=== PATIENT | male | born 1960 | race Caucasian/White ===

== ENCOUNTER → 2019-11-15 | Outpatient (CLI) | payer BC ==
--- NOTE | 2019-11-15 09:03 | CT ---
EXAMINATION TYPE: CT urogram wo/w con DATE OF EXAM: 11/15/2019 COMPARISON: None HISTORY: Hematuria, frequent urination CT DLP: 2667.7 mGycm Automated exposure control for dose reduction was used. CONTRAST: Performed without and with IV Contrast, patient injected with 100 mL of Isovue 300. TECHNIQUE: Axial images 5 mm thick sections. Reconstructed images in the coronal plane. Three-D recon structed images of the renal collecting system was performed on a separate computer by the technologi st FINDINGS: Limited CT sections are obtained the lung bases. There is a calcified nodule in the posterior medial right lung base measuring 0.6 cm. Series 6 image 3. Some pectus excavatum may be present. Few tiny calcifications may be within the liver. Multiple calcified granuloma are within the spleen. Cholelithiasis is present. Pancreas is unremarkable. Adrenal glands are normal. Kidneys are normal wi thout masses cysts or hydronephrosis. Loops of bowel without oral contrast appear unremarkable. Attention is paid to the kidneys pre and postcontrast. No masses cysts or hydronephrosis are evident. No hydroureter is evident. No filling defects are evident. Urinary bladder: A posterior inferior calcification may be present within the urinary bladder measuri ng 1.6 cm 940 Hounsfield units. A precontrast imaging this area is not evident. Small amount of contr ast is entering the urinary bladder and urinary bladder contrast could be considered as well. Prostate is markedly enlarged and has some inferior impression on urinary bladder. IMPRESSION: 1. URINARY BLADDER CALCIFICATION LIKELY PRESENT. 2. INFERIOR IMPRESSION BY THE ENLARGED PROSTATE. 3. CTA UROGRAM APPEARS UNREMARKABLE.
== END | disposition home or self-care (01) ==
LOC: RADCTMAIN 06:56
PROVIDERS: ATTEND Urology
DX: N40.1 Benign prostatic hyperplasia with lower urinary tract symptoms (principal); R31.9 Hematuria, unspecified; R82.89 Other abnormal findings on cytological and histological examination of urine
CPT/HCPCS: 82565; 84520; 74178; 36415; 74400; Q9967

== ENCOUNTER → 2019-11-24 | Outpatient (CLI) | payer BC ==
[2019-11-24 09:21] LABS: Basophils % (A) 0 %; Eosinophils # (A) 0.1 k/uL (0-0.7); Eosinophils % (A) 3 %; HCT 38.8 % (39.0-53.0); HGB 13.6 gm/dL (13.0-17.5); Lymphocytes # (A) 1.5 k/uL (1.0-4.8); Lymphocytes % (A) 36 %; MCH 31.2 pg (25.0-35.0); MCHC 35.1 g/dL (31.0-37.0); MCV 88.9 fL (80.0-100.0); Mean Platelet Volume 7.5; Monocytes # (A) 0.2 k/uL (0-1.0); Monocytes % (A) 6 %; Neutrophils # (A) 2.3 k/uL (1.3-7.7); Neutrophils % (A) 54 %; Platelet Count 193 k/uL (150-450); RBC 4.36 m/uL (4.30-5.90); RDW 12.5 % (11.5-15.5); WBC 4.3 k/uL (3.8-10.6)
[2019-11-24 09:25] LABS: African American GFR (CKD) >90 (>60 ml/min/1.73 sqM); Anion Gap 9 mmol/L; Blood Urea Nitrogen 20 mg/dL (9-20); Calcium 10.3 mg/dL (8.4-10.2); Carbon Dioxide 26 mmol/L (22-30); Chloride 104 mmol/L (98-107); Glucose 243 mg/dL (74-99); Non-African American GFR(CKD) 80 (>60 ml/min/1.73 sqM); Potassium 4.8 mmol/L (3.5-5.1); Sodium 139 mmol/L (137-145)
== END | disposition home or self-care (01) ==
LOC: LABPAT 08:12
PROVIDERS: ATTEND Urology
DX: Z20.828 Contact with and (suspected) exposure to other viral communicable diseases (principal); N21.0 Calculus in bladder
CPT/HCPCS: 36415; 80048; 85025

== ENCOUNTER 2019-12-01 08:21 | Day surgery (SDC) | payer BC ==
[2019-11-28 16:14] VITALS: BMI 27.8
--- NOTE | 2019-11-30 11:01 | P.GSHP ---
History of Present Illness H&P Date: 11/24/19 Chief Complaint: Hematuria the patient is a 59-year-old white male with microhematuria. Urine cytology was suspicious. A CT urogram showed normal upper tracts, but revealed a 1.6 cm bladder calculus. He now comes for cystolithotripsy. - Constitutional Constitutional: Denies chills, Denies fever - Genitourinary (Male) Genitourinary: Reports urinary frequency Past Medical History - Past Family History Mother Family Medical History: No Reported History Medications and Allergies Home Medications Medication Instructions Recorded Confirmed Type Cholecalciferol [Vitamin D3 (25 1,000 unit PO DAILY 11/28/19 11/28/19 History Mcg = 1000 Iu)] Fenofibrate Nanocrystallized 145 mg PO DAILY 11/28/19 11/28/19 History [Fenofibrate] Glimepiride [Amaryl] 1 mg PO BID 11/28/19 11/28/19 History Losartan Potassium [Cozaar] 50 mg PO DAILY 11/28/19 11/28/19 History Multivitamins, Thera [Multivitamin 1 tab PO DAILY 11/28/19 11/28/19 History (formulary)] [place]-3 Fatty Acids/Fish Oil [Fish 1 each PO DAILY 11/28/19 11/28/19 History Oil 1,000 mg Softgel] Omeprazole [PriLOSEC] 20 mg PO AC-BRKFST 11/28/19 11/28/19 History Tamsulosin [Flomax] 0.4 mg PO DAILY 11/28/19 11/28/19 History metFORMIN HCL [Glucophage] 1,000 mg PO BID 11/28/19 11/28/19 History Allergies Allergy/AdvReac Type Severity Reaction Status Date / Time No Known Allergies Allergy Verified 11/28/19 15:58 Surgical - Exam - General well developed, well nourished, no distress - Neck no masses, trachea midline - Respiratory normal respiratory effort, clear to auscultation - Cardiovascular Rhythm: regular Abnormal Heart Sounds: no systolic murmur, no diastolic murmur, no rub, no S3 Gallop, no S4 Gallop, no click, no other - Abdomen Abdomen: soft, non tender, no guarding, no rigid, no rebound - Genitourinary normal penis with no external lesions, testicles non-tender - Rectum Rectum: normal sphincter tone, no masses, other (prostate moderately enlarged with benign right apical nodule) - Psychiatric oriented to time Results - Imaging CT scan - abdomen: report reviewed, image reviewed Assessment and Plan (1) Calculus in bladder Status: Acute Code(s): N21.0 - CALCULUS IN BLADDER SNOMED Code(s): 72726056 Plan: Cystoscopy with cystolithotripsy. The procedure has been reviewed in detail with the patient. He is aware of potential risks, which include anesthesia, bleeding, infection, bladder perforation, and postoperative urinary retention.
[~2019-12-01 08:21] MED LIST: DEXAMETHASONE SOD PHOSPHATE 10 MG/ML 1 ML VIAL IV ONE; HYDROmorphone 0.5 MG/0.5 ML SYRINGE IVP PRN; LACTATED RINGERS 1,000 ML IV SCH; ONDANSETRON 4 MG/2 ML VIAL IVP ONE
[2019-12-01 08:52] VITALS: TEMP 97.7
[2019-12-01 08:57] LABS: Glucose,Whole Blood 158 mg/dL (75-99)
[2019-12-01] MEDS ORDERED: KETOROLAC 15 MG/ML 1 ML VIAL ONE (10:00)
[2019-12-01] MEDS ORDERED: LIDOCAINE 1% INJ 10MG/ML (20 ML MDV) ONE (10:00)
[2019-12-01] MEDS ORDERED: fentaNYL (PF) 50 MCG/ML 2 ML AMP ONE (10:00)
[2019-12-01] MEDS ORDERED: PROPOFOL 10 MG/ML 20 ML VIAL IV ONE (10:00)
[2019-12-01] MEDS ORDERED: SUCCINYLCHOLINE CHLORIDE 100 MG/5 ML SYR IV ONE (10:00)
[2019-12-01] MEDS ORDERED: MIDAZOLAM 2 MG/2 ML VIAL ONE (10:00)
--- NOTE | 2019-12-01 11:00 | P.OP ---
Date of Procedure: 12/01/19 Preoperative Diagnosis: Bladder Calculus Postoperative Diagnosis: Same Procedure(s) Performed: Cystoscopy with cystolithotripsy Anesthesia: JUAN R Surgeon: Sunny Garcia Estimated Blood Loss (ml): 10 IV fluids (ml): 500 Pathology: other (Bladder calculus fragments) Condition: stable Disposition: PACU Indications for Procedure: the patient is a 59-year-old white male with microhematuria. Urine cytology was suspicious. A CT urogram showed normal upper tracts, but revealed a 1.6 cm bladder calculus. He now comes for cystolithotripsy. Operative Findings: Bladder calculus, fragmented completely. Trilobar BPH. Description of Procedure: The patient was taken to the operating room and placed in the dorsal lithotomy position, with legs supported in Darek stirrups. The external genitalia was prepped and draped sterilely. The 30 lens was used to introduce the 21-[place] Dukes cystoscopic sheath through the urethra and into the bladder under direct vision. The urethra appeared normal. The prostate showed evidence of trilobar BPH which was completely obstructing. The bladder was examined in its entirety. The ureteral orifices appeared normal. A 1.6 cm bladder calculus was identified. No tumors were seen. No diverticuli were seen. Using the 1000 micron Holmium laser probe, lithotripsy was performed. Lithotripsy was continued until all calculus fragments could be removed via the cystoscope. Once this was completed, the bladder was inspected. There was no active bleeding, and no evidence of bladder perforation. An 18-Senegalese Dalal catheter was placed. The return was essentially clear. The patient tolerated the procedure well was taken to the recovery room in stable condition.
[2019-12-01 11:14] LABS: Glucose,Whole Blood 170 mg/dL (75-99)
[2019-12-01] MEDS ORDERED: LACTATED RINGERS 1,000 ML IV ONE (12:05)
[2019-12-01 12:07] VITALS: RESP 18
[2019-12-01 12:14] LABS: Glucose,Whole Blood 165 mg/dL (75-99)
[2019-12-01 12:41] VITALS: BP 117/74; PULSE 77
== END 2019-12-01 12:57 | disposition home or self-care (01) ==
LOC: OR 08:21
PROVIDERS: ATTEND Urology
DX: N21.0 Calculus in bladder (principal); R31.29 Other microscopic hematuria; R35.0 Frequency of micturition; K21.9 Gastro-esophageal reflux disease without esophagitis; I10 Essential (primary) hypertension; E11.9 Type 2 diabetes mellitus without complications; Z87.442 Personal history of urinary calculi; Z79.84 Long term (current) use of oral hypoglycemic drugs; Z79.899 Other long term (current) drug therapy; Z98.890 Other specified postprocedural states
CPT/HCPCS: 52317; 82365; J2250; J1100; J2405; J2001; J3010; J1885; J0330; J2704

== ENCOUNTER 2023-07-21 23:33 | Emergency (ER) | payer BC ==
[2023-07-21 23:59] VITALS: RESP 18; TEMP 98.3
--- NOTE | 2023-07-22 00:33 | ED ---
General Adult HPI - General Chief complaint: Recheck/Abnormal Lab/Rx Stated complaint: Nephrology Time Seen by Provider: 07/21/23 23:46 Source: EMS, RN notes reviewed Mode of arrival: EMS - History of Present Illness Initial comments: 63-year-old male transferred from [facility]. The patient reports since Thursday, has had decreased bowel movements urination with some associated diffuse abdominal pain. Seen at [facility] and this time had labs significant for a BMP showing a BUN of 60, creatinine of 3.67, with a GFR of 17.7. UA performed that showed no significant evidence of infection. CT scan performed showed moderate left hydroureteronephrosis with periureteric/perinephric fat stranding and mild right hydrouteronephrosis. Calculus within the dependent aspect of the urinary bladder suggestive of recently passed calculus. Per the MDM there there is also concern for possibility of prostatic hypertrophy or soft tissue mass that could be causing obstructive uropathy. With the decline in renal function with no prior known history of renal impairment sent here for further evaluation as his urologist practices here. Currently, he reports no abdominal pain. Does note some nausea. No chest pain or shortness of breath. No fever or chills. No other complaints at this time. - Related Data Home Medications Medication Instructions Recorded Confirmed Cholecalciferol [Vitamin D3 (25 1,000 unit PO DAILY 11/28/19 11/28/19 Mcg = 1000 Iu)] Fenofibrate Nanocrystallized 145 mg PO DAILY 11/28/19 11/28/19 [Fenofibrate] Glimepiride [Amaryl] 1 mg PO BID 11/28/19 11/28/19 Losartan Potassium [Cozaar] 50 mg PO DAILY 11/28/19 11/28/19 Multivitamins, Thera [Multivitamin 1 tab PO DAILY 11/28/19 11/28/19 (formulary)] Ruth-3 Fatty Acids/Fish Oil [Fish 1 each PO DAILY 11/28/19 11/28/19 Oil 1,000 mg Softgel] Omeprazole [PriLOSEC] 20 mg PO AC-BRKFST 11/28/19 11/28/19 Tamsulosin [Flomax] 0.4 mg PO DAILY 11/28/19 11/28/19 metFORMIN HCL [Glucophage] 1,000 mg PO BID 11/28/19 11/28/19 Allergies Allergy/AdvReac Type Severity Reaction Status Date / Time No Known Allergies Allergy Verified 07/21/23 23:58 Review of Systems ROS Statement: Those systems with pertinent positive or pertinent negative responses have been documented in the HPI. ROS Other: All systems not noted in ROS Statement are negative. General Exam General appearance: alert, in no apparent distress Eye exam: Present: normal appearance Neck exam: Present: normal inspection Respiratory exam: Present: normal lung sounds bilaterally Cardiovascular Exam: Present: regular rate GI/Abdominal exam: Present: soft, normal bowel sounds. Absent: distended, tenderness, guarding, rebound, rigid Neurological exam: Present: alert, oriented X3 Skin exam: Present: warm, dry Course Vital Signs 07/21/23 23:51 Temperature 98.3 F Pulse Rate 86 Respiratory 18 Rate Blood Pressure 133/81 O2 Sat by Pulse 94 L Oximetry Medical Decision Making - Medical Decision Making Was pt. sent in by a medical professional or institution (, PA, PILOT CONTROL OPERATOR HELPER, urgent care, hospital, or senior care...) When possible be specific @ -[facility] Did you speak to anyone other than the patient for history (EMS, parent, family, police, friend...)? What history was obtained from this source @ -No Did you review nursing and triage notes (agree or disagree)? Why? @ -I reviewed and agree with nursing and triage notes Were old charts reviewed (outside hosp., previous admission, EMS record, old EKG, old radiological studies, urgent care reports/EKG's, senior care records)? Report findings @ -Paperwork from [facility] reviewed. For further details please see HPI. Differential Diagnosis (chest pain, altered mental status, abdominal pain women, abdominal pain men, vaginal bleeding, weakness, fever, dyspnea, syncope, headache, dizziness, GI bleed, back pain, seizure, CVA, palpatations, mental health, musculoskeletal)? @ -Differential Abdominal Pain Men: Appendicitis, cholecystitis, diverticulosis, ischemic bowel, pancreatitis, hepatitis, UTI, gastroenteritis, AAA, incarcerated hernia, bowel obstruction, constipation, inflammatory bowel, hepatitis, peptic ulcer disease, splenic infarction, perforated viscus, testicular torsion, this is not meant to be an all-inclusive list EKG interpreted by me (3pts min.). @ -None X-rays interpreted by me (1pt min.). @ -None done CT interpreted by me (1pt min.). @ -None done U/S interpreted by me (1pt. min.). @ -None done What testing was considered but not performed or refused? (CT, X-rays, U/S, labs)? Why? @ -None What meds were considered but not given or refused? Why? @ -None Did you discuss the management of the patient with other professionals (professionals i.e. DrJerel, PA, PILOT CONTROL OPERATOR HELPER, lab, RT, psych nurse, social media intern, straight ruling machine operator, teacher, control officer manager, rehabilitation caseworker)? Give summary @ -Case discussed with Dr. Morel, who at this time recommends discharge with Dalal catheter in place with close outpatient follow-up. Was smoking cessation discussed for >3mins.? @ -No Was critical care preformed (if so, how long)? @ -No Were there social determinants of health that impacted care today? How? (Homelessness, low income, unemployed, alcoholism, drug addiction, transportation, low edu. Level, literacy, decrease access to med. care, assisted, rehab)? @ -No Was there de-escalation of care discussed even if they declined (Discuss DNR or withdrawal of care, Hospice)? DNR status @ -No What co-morbidities impacted this encounter? (DM, HTN, Smoking, COPD, CAD, Cancer, CVA, ARF, Chemo, Hep., AIDS, mental health diagnosis, sleep apnea, morbid obesity)? @ -None Was patient admitted / discharged? Hospital course, mention meds given and route, prescriptions, significant lab abnormalities, going to OR and other pertinent info. @ -Discharge 63-year-old male transferred from [facility] due to complaints of urinary retention finding 1100 mL in the bladder prior to Dalal insertion. Patient transferred here as his urologist works at this facility. Case discussed with urology here who advises close outpatient follow-up and discharged with a Dalal in place. Discharged home in stable condition. Provided referral to see urology. Discussed tricked return precautions with patient who verbalized agreement. Undiagnosed new problem with uncertain prognosis? @ -No Drug Therapy requiring intensive monitoring for toxicity (Heparin, Nitro, Insulin, Cardizem)? @ -No Were any procedures done? @ -No Diagnosis/symptom? @ -Urinary retention Acute, or Chronic, or Acute on Chronic? @ -Acute Uncomplicated (without systemic symptoms) or Complicated (systemic symptoms)? @ -Uncomplicated Side effects of treatment? @ -No Exacerbation, Progression, or Severe Exacerbation? @ -No Poses a threat to life or bodily function? How? (Chest pain, [place], [place], pneumonia, PE, COPD, DKA, ARF, appy, cholecystitis, CVA, Diverticulitis, Homicidal, Suicidal, threat to staff... and all critical care pts) @ -No - Lab Data Result diagrams: 07/22/23 00:39 Lab Results 07/22/23 Range/Units 00:39 WBC 7.5 (3.8-10.6) k/uL RBC 3.98 L (4.30-5.90) m/uL Hgb 12.2 L (13.0-17.5) gm/dL Hct 34.1 L (39.0-53.0) % MCV 85.7 (80.0-100.0) fL MCH 30.5 (25.0-35.0) pg MCHC 35.6 (31.0-37.0) g/dL RDW 12.5 (11.5-15.5) % Plt Count 206 (150-450) k/uL MPV 8.3 Neutrophils % 64 % Lymphocytes % 24 % Monocytes % 7 % Eosinophils % 3 % Basophils % 0 % Neutrophils # 4.8 (1.3-7.7) k/uL Lymphocytes # 1.8 (1.0-4.8) k/uL Monocytes # 0.5 (0-1.0) k/uL Eosinophils # 0.2 (0-0.7) k/uL Basophils # 0.0 (0-0.2) k/uL Disposition Clinical Impression: Urinary retention Disposition: HOME SELF-CARE Condition: Good Additional Instructions: Please return to the Emergency Department if symptoms worsen or any other concerns. Please follow-up with urology. Is patient prescribed a controlled substance at d/c from ED?: No Referrals: Cary Viera MD [Primary Care Provider] - 1-2 days Shant Morel MD [STAFF PHYSICIAN] - 1-2 days Time of Disposition: 01:00
[2023-07-22 00:52] LABS: Basophils % (A) 0 %; Eosinophils # (A) 0.2 k/uL (0-0.7); Eosinophils % (A) 3 %; HCT 34.1 % (39.0-53.0); HGB 12.2 gm/dL (13.0-17.5); Lymphocytes # (A) 1.8 k/uL (1.0-4.8); Lymphocytes % (A) 24 %; MCH 30.5 pg (25.0-35.0); MCHC 35.6 g/dL (31.0-37.0); MCV 85.7 fL (80.0-100.0); Mean Platelet Volume 8.3; Monocytes # (A) 0.5 k/uL (0-1.0); Monocytes % (A) 7 %; Neutrophils # (A) 4.8 k/uL (1.3-7.7); Neutrophils % (A) 64 %; Platelet Count 206 k/uL (150-450); RBC 3.98 m/uL (4.30-5.90); RDW 12.5 % (11.5-15.5); WBC 7.5 k/uL (3.8-10.6)
[2023-07-22 01:04] LABS: ALT 22 U/L (4-49); AST 17 U/L (17-59); African American GFR (CKD) 30 (>60 ml/min/1.73 sqM); Albumin 3.6 g/dL (3.5-5.0); Alkaline Phosphatase 59 U/L (38-126); Anion Gap 5 mmol/L; Blood Urea Nitrogen 52 mg/dL (9-20); Calcium 10.9 mg/dL (8.4-10.2); Carbon Dioxide 28 mmol/L (22-30); Chloride 101 mmol/L (98-107); Glucose 230 mg/dL (74-99); Non-African American GFR(CKD) 26 (>60 ml/min/1.73 sqM); Potassium 3.6 mmol/L (3.5-5.1); Sodium 134 mmol/L (137-145); Total Bilirubin 1.6 mg/dL (0.2-1.3); Total Protein 6.1 g/dL (6.3-8.2)
[2023-07-22 01:24] VITALS: BP 146/90; PULSE 84
== END 2023-07-22 01:31 | disposition home or self-care (01) ==
LOC: EC 23:33
DX: R33.9 Retention of urine, unspecified (principal)
CPT/HCPCS: 36415; 80053; 85025; 99284

== ENCOUNTER 2023-07-30 10:08 | Emergency (ER) | payer BC ==
[2023-07-30 10:15] VITALS: RESP 18
--- NOTE | 2023-07-30 12:30 | ED ---
General Adult HPI - General Chief complaint: Urogenital Stated complaint: Cath Issues Time Seen by Provider: 07/30/23 10:16 Source: patient, RN notes reviewed Mode of arrival: ambulatory Limitations: no limitations - History of Present Illness Initial comments: 63-year-old male presents to the emergency department for evaluation of Dalal catheter issues. Patient states that he had a Dalal catheter put in place about 1 week ago for urinary retention. He notes that today he had not had urine output for a few hours and started to develop some suprapubic discomfort. He states that he has been having hematuria. He followed with urology yesterday and states that they were not acutely concerned for his hematuria. He is supposed to have a procedure done with urology but it is not yet scheduled. He denies recent fever, chills. Denies any other associated symptoms. - Related Data Home Medications Medication Instructions Recorded Confirmed Cholecalciferol [Vitamin D3 (25 1,000 unit PO DAILY 11/28/19 11/28/19 Mcg = 1000 Iu)] Fenofibrate Nanocrystallized 145 mg PO DAILY 11/28/19 11/28/19 [Fenofibrate] Glimepiride [Amaryl] 1 mg PO BID 11/28/19 11/28/19 Losartan Potassium [Cozaar] 50 mg PO DAILY 11/28/19 11/28/19 Multivitamins, Thera [Multivitamin 1 tab PO DAILY 11/28/19 11/28/19 (formulary)] Mobile-3 Fatty Acids/Fish Oil [Fish 1 each PO DAILY 11/28/19 11/28/19 Oil 1,000 mg Softgel] Omeprazole [PriLOSEC] 20 mg PO AC-BRKFST 11/28/19 11/28/19 Tamsulosin [Flomax] 0.4 mg PO DAILY 11/28/19 11/28/19 metFORMIN HCL [Glucophage] 1,000 mg PO BID 11/28/19 11/28/19 Previous Rx's Medication Instructions Recorded Cephalexin [Keflex] 500 mg PO Q6HR #28 cap 07/30/23 Allergies Allergy/AdvReac Type Severity Reaction Status Date / Time lisinopril AdvReac Cough Verified 07/30/23 10:15 Review of Systems ROS Statement: Those systems with pertinent positive or pertinent negative responses have been documented in the HPI. ROS Other: All systems not noted in ROS Statement are negative. Past Medical History Past Medical History: Diabetes Mellitus, Hypertension Additional Past Medical History / Comment(s): bladder stone, urinary catheter, kidney stones, History of Any Multi-Drug Resistant Organisms: None Reported Additional Past Surgical History / Comment(s): bladder stone remova, hernia repair, Past Psychological History: No Psychological Hx Reported Smoking Status: Never smoker Past Alcohol Use History: None Reported Past Drug Use History: None Reported General Exam Limitations: no limitations General appearance: alert, in no apparent distress Head exam: Present: atraumatic, normocephalic, normal inspection Eye exam: Present: normal appearance, PERRL, EOMI. Absent: scleral icterus, conjunctival injection, periorbital swelling ENT exam: Present: normal exam, mucous membranes moist Neck exam: Present: normal inspection. Absent: tenderness, meningismus, lymphadenopathy Respiratory exam: Present: normal lung sounds bilaterally. Absent: respiratory distress, wheezes, rales, rhonchi, stridor Cardiovascular Exam: Present: regular rate, normal rhythm, normal heart sounds. Absent: systolic murmur, diastolic murmur, rubs, gallop, clicks GI/Abdominal exam: Present: distended (Suprapubic distention), normal bowel sounds. Absent: tenderness, guarding, rebound, rigid Neurological exam: Present: alert, oriented X3 Psychiatric exam: Present: normal affect, normal mood Skin exam: Present: warm, dry, intact, normal color, other (samm hematuria in Dalal bag). Absent: rash Course Vital Signs 07/30/23 07/30/23 10:10 13:07 Temperature 98.0 F 98.1 F Pulse Rate 108 H 90 Respiratory 18 18 Rate Blood Pressure 133/79 147/90 O2 Sat by Pulse 97 97 Oximetry Medical Decision Making - Medical Decision Making Was pt. sent in by a medical professional or institution (, PA, PAN TANK WORKER, urgent care, hospital, or fci...) When possible be specific @ -No Did you speak to anyone other than the patient for history (EMS, parent, family, police, friend...)? What history was obtained from this source @ -No Did you review nursing and triage notes (agree or disagree)? Why? @ -I reviewed and agree with nursing and triage notes Were old charts reviewed (outside hosp., previous admission, EMS record, old EKG, old radiological studies, urgent care reports/EKG's, fci records)? Report findings @ -No old charts were reviewed Differential Diagnosis (chest pain, altered mental status, abdominal pain women, abdominal pain men, vaginal bleeding, weakness, fever, dyspnea, syncope, headache, dizziness, GI bleed, back pain, seizure, CVA, palpatations, mental health, musculoskeletal)? @ -Urinary retention, hematuria, Dalal catheter occlusion, this is resolved close EKG interpreted by me (3pts min.). @ -None X-rays interpreted by me (1pt min.). @ -None done CT interpreted by me (1pt min.). @ -None done U/S interpreted by me (1pt. min.). @ -None done What testing was considered but not performed or refused? (CT, X-rays, U/S, labs)? Why? @ -None What meds were considered but not given or refused? Why? @ -None Did you discuss the management of the patient with other professionals (professionals i.e. , PA, PAN TANK WORKER, lab, RT, psych nurse, school social worker, bellows tester, teacher, staff antisubmarine officer, case maker)? Give summary @ -No Was smoking cessation discussed for >3mins.? @ -No Was critical care preformed (if so, how long)? @ -No Were there social determinants of health that impacted care today? How? (Homelessness, low income, unemployed, alcoholism, drug addiction, transportation, low edu. Level, literacy, decrease access to med. care, skilled nursing, rehab)? @ -No Was there de-escalation of care discussed even if they declined (Discuss DNR or withdrawal of care, Hospice)? DNR status @ -No What co-morbidities impacted this encounter? (DM, HTN, Smoking, COPD, CAD, Cancer, CVA, ARF, Chemo, Hep., AIDS, mental health diagnosis, sleep apnea, morbid obesity)? @ -None Was patient admitted / discharged? Hospital course, mention meds given and route, prescriptions, significant lab abnormalities, going to OR and other pertinent info. @ -Discharge. Patient presented to the emergency department for evaluation of Dalal catheter issues. Dalal catheter flush was attempted which achieved blood clots but was still clogged. Replacement was put into place and extensively irrigated the bladder. UA was obtained which shows samm hematuria, no evidence of infectious process. Discussed further workup with laboratory studies, patient declined as he had just had this performed yesterday in his urologist office. Dalal catheter is draining. He is advised to follow-up with his urologist. He is understanding and agreeable with this plan. Patient stable at time of discharge. Case discussed with Dr. Pickett. Undiagnosed new problem with uncertain prognosis? @ -No Drug Therapy requiring intensive monitoring for toxicity (Heparin, Nitro, Insulin, Cardizem)? @ -No Were any procedures done? @ -No Diagnosis/symptom? @ -Dalal catheter occlusion Acute, or Chronic, or Acute on Chronic? @ -Acute Uncomplicated (without systemic symptoms) or Complicated (systemic symptoms)? @ -Uncomplicated Side effects of treatment? @ -No Exacerbation, Progression, or Severe Exacerbation? @ -No Poses a threat to life or bodily function? How? (Chest pain, [place], [place], pneumonia, PE, COPD, DKA, ARF, appy, cholecystitis, CVA, Diverticulitis, Homicidal, Suicidal, threat to staff... and all critical care pts) @ -No - Lab Data Lab Results 07/30/23 Range/Units 12:08 Urine Color Red Urine Appearance Turbid (Clear) Urine RBC >182 H (0-5) /hpf Urine WBC 19 H (0-5) /hpf Disposition Clinical Impression: Hematuria, Dalal catheter problem Disposition: HOME SELF-CARE Condition: Stable Instructions (If sedation given, give patient instructions): Dalal Catheter Placement and Care (ED) Additional Instructions: Please follow up with your urologist. Return to the emergency department for new or worsening symptoms. Prescriptions: Cephalexin [Keflex] 500 mg PO Q6HR #28 cap Is patient prescribed a controlled substance at d/c from ED?: No Referrals: Cary Viera MD [Primary Care Provider] - 1-2 days
[2023-07-30 12:43] LABS: RBC,Urine >182 /hpf (0-5); WBC,Urine 19 /hpf (0-5)
[2023-07-30 12:44] LABS: Appearance,Urine Turbid (Clear); Color,Urine Red
[2023-07-30 13:12] VITALS: BP 147/90; PULSE 90; TEMP 98.1
== END 2023-07-30 13:07 | disposition home or self-care (01) ==
LOC: EC 10:08
DX: T83.091A Other mechanical complication of indwelling urethral catheter, initial encounter (principal); R31.9 Hematuria, unspecified; Z88.8 Allergy status to other drugs, medicaments and biological substances
CPT/HCPCS: 51702; 51798; 81001; 87086; 99284

== ENCOUNTER 2023-07-30 17:14 | Observation (INO) | payer BC ==
--- NOTE | 2023-07-30 18:06 | ED ---
Male Urogenital HPI - General Chief complaint: Urogenital Stated complaint: Cath Issues Time Seen by Provider: 07/30/23 17:34 Source: patient, RN notes reviewed Mode of arrival: ambulatory Limitations: no limitations - History of Present Illness Initial comments: 63-year-old male presenting with catheter issue. He has been following with Dr. Garcia for hematuria and prostate hypertrophy. He has a Dalal catheter placed which has been clotting due to the hematuria and becoming clogged. He was seen in the ER several hours ago where they irrigated and changed the catheter, however he reports the catheter immediately clogged after he got home. He tried to flush it himself with no success. He is having suprapubic pain he feels is due to the retention. He has an upcoming prostate biopsy in August. - Related Data Home Medications Medication Instructions Recorded Confirmed Cholecalciferol [Vitamin D3 (25 1,000 unit PO DAILY 11/28/19 11/28/19 Mcg = 1000 Iu)] Fenofibrate Nanocrystallized 145 mg PO DAILY 11/28/19 11/28/19 [Fenofibrate] Glimepiride [Amaryl] 1 mg PO BID 11/28/19 11/28/19 Losartan Potassium [Cozaar] 50 mg PO DAILY 11/28/19 11/28/19 Multivitamins, Thera [Multivitamin 1 tab PO DAILY 11/28/19 11/28/19 (formulary)] [place]-3 Fatty Acids/Fish Oil [Fish 1 each PO DAILY 11/28/19 11/28/19 Oil 1,000 mg Softgel] Omeprazole [PriLOSEC] 20 mg PO AC-BRKFST 11/28/19 11/28/19 Tamsulosin [Flomax] 0.4 mg PO DAILY 11/28/19 11/28/19 metFORMIN HCL [Glucophage] 1,000 mg PO BID 11/28/19 11/28/19 Previous Rx's Medication Instructions Recorded Cephalexin [Keflex] 500 mg PO Q6HR #28 cap 07/30/23 Allergies Allergy/AdvReac Type Severity Reaction Status Date / Time lisinopril AdvReac Cough Verified 07/30/23 10:15 Review of Systems ROS Statement: Those systems with pertinent positive or pertinent negative responses have been documented in the HPI. ROS Other: All systems not noted in ROS Statement are negative. Past Medical History Past Medical History: Diabetes Mellitus, Hypertension Additional Past Medical History / Comment(s): bladder stone, urinary catheter, kidney stones, History of Any Multi-Drug Resistant Organisms: None Reported Additional Past Surgical History / Comment(s): bladder stone remova, hernia repair, Past Psychological History: No Psychological Hx Reported Smoking Status: Never smoker Past Alcohol Use History: None Reported Past Drug Use History: None Reported General Exam Limitations: no limitations General appearance: alert, in no apparent distress Head exam: Present: atraumatic, normocephalic, normal inspection Eye exam: Present: normal appearance, PERRL, EOMI. Absent: scleral icterus, conjunctival injection, periorbital swelling Respiratory exam: Present: normal lung sounds bilaterally. Absent: respiratory distress, wheezes, rales, rhonchi, stridor Cardiovascular Exam: Present: regular rate, normal rhythm, normal heart sounds. Absent: systolic murmur, diastolic murmur, rubs, gallop, clicks GI/Abdominal exam: Present: soft, tenderness (+Suprapubic tenderness), normal bowel sounds. Absent: distended, guarding, rebound, rigid exam: Present: other (Thick, dark red blood present in catheter) Neurological exam: Present: alert, oriented X3 Psychiatric exam: Present: normal affect, normal mood Skin exam: Present: warm, dry, intact, normal color. Absent: rash Course Vital Signs 07/30/23 07/30/23 07/30/23 17:27 17:51 19:43 Temperature 97.9 F Pulse Rate 134 H 115 H 128 H Respiratory 18 16 16 Rate Blood Pressure 97/63 117/79 134/86 O2 Sat by Pulse 97 100 98 Oximetry 07/30/23 07/30/23 19:59 23:07 Temperature Pulse Rate 84 99 Respiratory 18 18 Rate Blood Pressure 111/74 121/74 O2 Sat by Pulse 96 96 Oximetry Medical Decision Making - Medical Decision Making Was pt. sent in by a medical professional or institution (, PA, COTTON INSPECTOR, urgent care, hospital, or [facility]...) When possible be specific @ -No Did you speak to anyone other than the patient for history (EMS, parent, family, police, friend...)? What history was obtained from this source @ -No Did you review nursing and triage notes (agree or disagree)? Why? @ -I reviewed and agree with nursing and triage notes Were old charts reviewed (outside hosp., previous admission, EMS record, old EKG, old radiological studies, urgent care reports/EKG's, [facility] records)? Report findings @ -No old charts were reviewed Differential Diagnosis (chest pain, altered mental status, abdominal pain women, abdominal pain men, vaginal bleeding, weakness, fever, dyspnea, syncope, headache, dizziness, GI bleed, back pain, seizure, CVA, palpatations, mental health, musculoskeletal)? @ -Bladder stone, nephrolithiasis, carcinoma, obstruction EKG interpreted by me (3pts min.). @ -None X-rays interpreted by me (1pt min.). @ -None done CT interpreted by me (1pt min.). @ -None done U/S interpreted by me (1pt. min.). @ -Ultrasound of bladder reveals complex area within bladder, possible large blood present What testing was considered but not performed or refused? (CT, X-rays, U/S, labs)? Why? @ -None What meds were considered but not given or refused? Why? @ -None Did you discuss the management of the patient with other professionals (professionals i.e. , PA, COTTON INSPECTOR, lab, RT, psych nurse, social worker clinical, hydroelectric plant electrical engineer, teacher, legal officer, rehabilitation caseworker)? Give summary @ -Case discussed with Dr. Lloyd who accepts admission at this time for catheter issue. Advised replacing current 16 catheter with 20 and irrigating the catheter. Was smoking cessation discussed for >3mins.? @ -No Was critical care preformed (if so, how long)? @ -No Were there social determinants of health that impacted care today? How? (Homelessness, low income, unemployed, alcoholism, drug addiction, transportation, low edu. Level, literacy, decrease access to med. care, halfway, rehab)? @ -No Was there de-escalation of care discussed even if they declined (Discuss DNR or withdrawal of care, Hospice)? DNR status @ -No What co-morbidities impacted this encounter? (DM, HTN, Smoking, COPD, CAD, Can cer, CVA, ARF, Chemo, Hep., AIDS, mental health diagnosis, sleep apnea, morbid obesity)? @ -None Was patient admitted / discharged? Hospital course, mention meds given and route, prescriptions, significant lab abnormalities, going to OR and other pertinent info. @ -Patient was admitted. Patient was seen and evaluated catheter issue. Patient is having gross hematuria and catheter is clogging due to blood clots. Patient follows closely with Dr. Brennan. Dalal catheter, previously size 16, was replaced with 20. Patient continued to have clotting. Lab work was unremarkable, hemoglobin is stable at 12, BUN is 24. Patient is given Dilaudid for pain. Ultrasound of bladder revealed complex area within bladder. Case discussed with Dr. Lloyd who accepts admission at this time for catheter issue. Case discussed with Dr. Lucas Undiagnosed new problem with uncertain prognosis? @ -No Drug Therapy requiring intensive monitoring for toxicity (Heparin, Nitro, Insulin, Cardizem)? @ -No Were any procedures done? @ -No Diagnosis/symptom? @ -Catheter issue Acute, or Chronic, or Acute on Chronic? @ -Acute Uncomplicated (without systemic symptoms) or Complicated (systemic symptoms)? @ -Uncomplicated Side effects of treatment? @ -No Exacerbation, Progression, or Severe Exacerbation? @ -No Poses a threat to life or bodily function? How? (Chest pain, USA, CA, pneumonia, PE, COPD, DKA, ARF, appy, cholecystitis, CVA, Diverticulitis, Homicidal, Suicidal, threat to staff... and all critical care pts) @ -Low likelihood - Lab Data Result diagrams: 07/30/23 18:44 07/30/23 18:44 Lab Results 07/30/23 07/30/23 Range/Units 18:44 18:44 WBC 11.6 H (3.8-10.6) k/uL RBC 4.01 L (4.30-5.90) m/uL Hgb 12.1 L (13.0-17.5) gm/dL Hct 35.7 L (39.0-53.0) % MCV 88.9 (80.0-100.0) fL MCH 30.2 (25.0-35.0) pg MCHC 34.0 (31.0-37.0) g/dL RDW 12.5 (11.5-15.5) % Plt Count 311 (150-450) k/uL MPV 8.2 Neutrophils % 73 % Lymphocytes % 20 % Monocytes % 4 % Eosinophils % 2 % Basophils % 1 % Neutrophils # 8.5 H (1.3-7.7) k/uL Lymphocytes # 2.3 (1.0-4.8) k/uL Monocytes # 0.5 (0-1.0) k/uL Eosinophils # 0.2 (0-0.7) k/uL Basophils # 0.1 (0-0.2) k/uL Sodium 134 L (137-145) mmol/L Potassium 4.0 (3.5-5.1) mmol/L Chloride 100 (98-107) mmol/L Carbon Dioxide 24 (22-30) mmol/L Anion Gap 10 mmol/L BUN 24 H (9-20) mg/dL Creatinine 1.21 (0.66-1.25) mg/dL Est GFR (CKD-EPI)AfAm 73 (>60 ml/min/1.73 sqM) Est GFR (CKD-EPI)NonAf 63 (>60 ml/min/1.73 sqM) Glucose 293 H (74-99) mg/dL Calcium 11.4 H (8.4-10.2) mg/dL Total Bilirubin 0.7 (0.2-1.3) mg/dL AST 21 (17-59) U/L ALT 24 (4-49) U/L Alkaline Phosphatase 58 (38-126) U/L Total Protein 6.5 (6.3-8.2) g/dL Albumin 4.0 (3.5-5.0) g/dL Disposition Clinical Impression: Dalal catheter problem Disposition: ADMITTED IP TO THIS HOSP Referrals: Cary Viera MD [Primary Care Provider] - 1-2 days Time of Disposition: 21:57
[2023-07-30 18:56] LABS: Basophils # (A) 0.1 k/uL (0-0.2); Basophils % (A) 1 %; Eosinophils # (A) 0.2 k/uL (0-0.7); Eosinophils % (A) 2 %; HCT 35.7 % (39.0-53.0); HGB 12.1 gm/dL (13.0-17.5); Lymphocytes # (A) 2.3 k/uL (1.0-4.8); Lymphocytes % (A) 20 %; MCH 30.2 pg (25.0-35.0); MCV 88.9 fL (80.0-100.0); Mean Platelet Volume 8.2; Monocytes # (A) 0.5 k/uL (0-1.0); Monocytes % (A) 4 %; Neutrophils # (A) 8.5 k/uL (1.3-7.7); Neutrophils % (A) 73 %; Platelet Count 311 k/uL (150-450); RBC 4.01 m/uL (4.30-5.90); RDW 12.5 % (11.5-15.5); WBC 11.6 k/uL (3.8-10.6)
[2023-07-30 19:18] LABS: ALT 24 U/L (4-49); AST 21 U/L (17-59); African American GFR (CKD) 73 (>60 ml/min/1.73 sqM); Alkaline Phosphatase 58 U/L (38-126); Anion Gap 10 mmol/L; Blood Urea Nitrogen 24 mg/dL (9-20); Calcium 11.4 mg/dL (8.4-10.2); Carbon Dioxide 24 mmol/L (22-30); Chloride 100 mmol/L (98-107); Glucose 293 mg/dL (74-99); Non-African American GFR(CKD) 63 (>60 ml/min/1.73 sqM); Sodium 134 mmol/L (137-145); Total Bilirubin 0.7 mg/dL (0.2-1.3); Total Protein 6.5 g/dL (6.3-8.2)
--- NOTE | 2023-07-30 19:25 | US ---
EXAMINATION TYPE: US kidneys/renal and bladder DATE OF EXAM: 07/30/2023 COMPARISON: CT abdomen and pelvis 07/21/2023 CLINICAL INDICATION: Male, 63 years old with history of hematuria; Unable to urinate, has catheter in EXAM MEASUREMENTS: Right Kidney: 11.4 x 5.8 x 5.7 cm Left Kidney: 11.8 x 5.9 x 4.6 cm Right Kidney: No hydronephrosis or masses seen Left Kidney: Lobulated no hydronephrosis seen. Bladder: Complex area seen 7.7 x 6.6 x 5.3 cm. Bilateral Jets seen: no IMPRESSION: 1. Complex area within the urinary bladder. The catheter is identified as well. Neoplasm is not exclu ded. A large blood clot could be considered. Additional workup recommended
[2023-07-30] MEDS: HYDROmorphone 1 MG/ML 1 ML SYRINGE IVP STA (21:06)
[2023-07-30] MEDS ORDERED: NALOXONE 0.4 MG/ML 1 ML VIAL IV PRN (21:54)
[2023-07-30] MEDS ORDERED: HYDROmorphone 1 MG/ML 1 ML SYRINGE IVP PRN (21:54)
[2023-07-30] MEDS: MORPHINE SULFATE 4 MG/ML SYRINGE IV PRN (23:18)
[2023-07-31 06:54] LABS: Glucose,Whole Blood 242 mg/dL (70-110)
--- NOTE | 2023-07-31 08:33 | P.GSHP ---
History of Present Illness H&P Date: 07/31/23 Chief Complaint: gross hematuria This is a 63-year-old male admitted to the hospital with gross hematuria. He is a known patient to Dr. Garcia follows up with him for BPH and urinary retention. He had a catheter placed due to difficulty voiding, Approximately a week ago. Also hx of Elevated PSA, plan to undergo biopsy next month based on the results to determine whether patient would require a TURP versus a prostatectomy. Yesterday he noticed gross hematuria with the catheter, subsequently the catheter was clogged off, he presented to the ER at that point the catheter was flushed and he was discharged home but presented back later this the afternoon with similar complaint, subsequently catheter was up sized to 20 Kinyarwanda since that time it has been draining with intermittent clots. Prior to this episode denies any previous history of gross hematuria. He does have a known history of a bladder stone based on a CT scan done at [facility] Approximately Week Ago. Per Patient Otherwise CT Showed No Other Abnormalities. He Did Have a Renal Bladder Ultrasound That Was Significant for a 8 Cm Clot within the Bladder - Constitutional Constitutional: Denies chills, Denies fever - EENT Ears, nose, mouth and throat: Denies headache, Denies sore throat - Cardiovascular Cardiovascular: Denies chest pain, Denies shortness of breath - Respiratory Respiratory: Denies cough, Denies 7 - Gastrointestinal Gastrointestinal: Denies abdominal pain, Denies nausea, Denies vomiting - Genitourinary (Female) Genitourinary: Reports hematuria - Genitourinary (Male) Genitourinary: Reports hematuria, Denies dysuria - Integumentary Integumentary: Denies pruritus, Denies rash - Neurological Neurological: Denies numbness, Denies weakness Past Medical History Past Medical History: Diabetes Mellitus, Hypertension Additional Past Medical History / Comment(s): bladder stone, urinary catheter, kidney stones, History of Any Multi-Drug Resistant Organisms: None Reported Additional Past Surgical History / Comment(s): bladder stone remova, hernia repair, Past Psychological History: No Psychological Hx Reported Smoking Status: Never smoker Past Alcohol Use History: None Reported Past Drug Use History: None Reported Medications and Allergies Home Medications Medication Instructions Recorded Confirmed Type Cholecalciferol [Vitamin D3 (25 1,000 unit PO DAILY 11/28/19 07/31/23 History Mcg = 1000 Iu)] Fenofibrate Nanocrystallized 145 mg PO DAILY 11/28/19 07/31/23 History [Fenofibrate] [place]-3 Fatty Acids/Fish Oil [Fish 1 cap PO DAILY 11/28/19 07/31/23 History Oil 1,000 mg Softgel] Omeprazole [PriLOSEC] 20 mg PO AC-BRKFST 11/28/19 07/31/23 History Tamsulosin [Flomax] 0.4 mg PO DAILY 11/28/19 07/31/23 History metFORMIN HCL [Glucophage] 1,000 mg PO BID 11/28/19 07/31/23 History Cephalexin [Keflex] 500 mg PO Q6HR #28 cap 07/30/23 07/31/23 Rx Glimepiride [Amaryl] 4 mg PO AC-BID 07/31/23 07/31/23 History Losartan/Hydrochlorothiazide 1 tab PO DAILY 07/31/23 07/31/23 History [Hyzaar 100-12.5 Tablet] Mv-Min/Folic/K1/Lycopen/Lutein 1 tab PO DAILY 07/31/23 07/31/23 History [Centrum Silver Men Tablet] Allergies Allergy/AdvReac Type Severity Reaction Status Date / Time lisinopril AdvReac Cough Verified 07/31/23 07:41 Surgical - Exam Vital Signs Temp Pulse Resp BP Pulse Ox 97.9 F 134 H 18 97/63 97 07/30/23 17:27 07/30/23 17:27 07/30/23 17:27 07/30/23 17:27 07/30/23 17:27 - General no distress, no pain - Eyes normal ocular movement, no pale - ENT normal nares, normal mucosa - Respiratory normal expansion, normal respiratory effort - Abdomen Abdomen: soft, non tender - Psychiatric oriented to time, oriented to person, oriented to place Results - Labs 07/30/23 18:44 07/30/23 18:44 Abnormal Lab Results - Last 24 Hours (Table) 07/30/23 07/30/23 07/31/23 Range/Units 18:44 18:44 06:53 WBC 11.6 H (3.8-10.6) k/uL RBC 4.01 L (4.30-5.90) m/uL Hgb 12.1 L (13.0-17.5) gm/dL Hct 35.7 L (39.0-53.0) % Neutrophils # 8.5 H (1.3-7.7) k/uL Sodium 134 L (137-145) mmol/L BUN 24 H (9-20) mg/dL Glucose 293 H (74-99) mg/dL POC Glucose (mg/dL) 242 H (70-110) mg/dL Calcium 11.4 H (8.4-10.2) mg/dL Diabetes panel 07/30/23 Range/Units 18:44 Sodium 134 L (137-145) mmol/L Potassium 4.0 (3.5-5.1) mmol/L Chloride 100 (98-107) mmol/L Carbon Dioxide 24 (22-30) mmol/L BUN 24 H (9-20) mg/dL Creatinine 1.21 (0.66-1.25) mg/dL Glucose 293 H (74-99) mg/dL Calcium 11.4 H (8.4-10.2) mg/dL AST 21 (17-59) U/L ALT 24 (4-49) U/L Alkaline Phosphatase 58 (38-126) U/L Total Protein 6.5 (6.3-8.2) g/dL Albumin 4.0 (3.5-5.0) g/dL Calcium panel 07/30/23 Range/Units 18:44 Calcium 11.4 H (8.4-10.2) mg/dL Albumin 4.0 (3.5-5.0) g/dL Pituitary panel 07/30/23 Range/Units 18:44 Sodium 134 L (137-145) mmol/L Potassium 4.0 (3.5-5.1) mmol/L Chloride 100 (98-107) mmol/L Carbon Dioxide 24 (22-30) mmol/L BUN 24 H (9-20) mg/dL Creatinine 1.21 (0.66-1.25) mg/dL Glucose 293 H (74-99) mg/dL Calcium 11.4 H (8.4-10.2) mg/dL Adrenal panel 07/30/23 Range/Units 18:44 Sodium 134 L (137-145) mmol/L Potassium 4.0 (3.5-5.1) mmol/L Chloride 100 (98-107) mmol/L Carbon Dioxide 24 (22-30) mmol/L BUN 24 H (9-20) mg/dL Creatinine 1.21 (0.66-1.25) mg/dL Glucose 293 H (74-99) mg/dL Calcium 11.4 H (8.4-10.2) mg/dL Total Bilirubin 0.7 (0.2-1.3) mg/dL AST 21 (17-59) U/L ALT 24 (4-49) U/L Alkaline Phosphatase 58 (38-126) U/L Total Protein 6.5 (6.3-8.2) g/dL Albumin 4.0 (3.5-5.0) g/dL Assessment and Plan Assessment: 63-year-old male with history of gross hematuria, and urinary retention. Evidence of large clot within the bladder. He does currently have a 20 Kinyarwanda catheter consistent with old blood. Ultrasound did show large blood clot in the bladder. I do anticipate him to have gross hematuria for few days until the clot completely resolves. If the catheter is draining without any issues we will plan on discharging home later this afternoon, but if the catheter continues to require irrigation then we will keep for 1 more day
[2023-07-31] MEDS: TAMSULOSIN 0.4 MG CAP.ER.24H PO SCH (09:20)
[2023-07-31] MEDS: hydroCHLOROthiazide 12.5 MG CAP PO SCH (09:22)
[2023-07-31] MEDS: LOSARTAN 50 MG TAB PO SCH (09:23)
[2023-07-31] MEDS: metFORMIN 500 MG TAB PO SCH (09:26)
[2023-07-31 11:56] LABS: Glucose,Whole Blood 240 mg/dL (70-110)
[2023-07-31] MEDS: CEPHALEXIN 500 MG CAP PO SCH (13:06)
[2023-07-31 17:06] LABS: Glucose,Whole Blood 252 mg/dL (70-110)
[2023-07-31] MEDS: GLIMEPIRIDE 4 MG TAB PO SCH (17:57)
[2023-07-31 20:34] LABS: Glucose,Whole Blood 303 mg/dL (70-110)
[2023-08-01 05:48] LABS: Glucose,Whole Blood 180 mg/dL (70-110)
[2023-08-01] MEDS: PANTOPRAZOLE 40 MG TABLET PO SCH (06:53)
[2023-08-01 07:22] VITALS: BP 110/73; PULSE 78; RESP 18; TEMP 97.7
[2023-08-01 11:39] LABS: Glucose,Whole Blood 294 mg/dL (70-110)
--- NOTE | 2023-08-01 22:39 | P.PCN ---
Date of Procedure: 08/01/23 Preoperative Diagnosis: Gross hematuria Postoperative Diagnosis: Same Procedure(s) Performed: Bladder irrigation Description of Procedure: Using 500 over mL of normal saline and a Yvonne syringe, the bladder was irrigated to clear approximately 50 cc of old blood clots was retrieved from the bladder. Patient tolerated procedure well
--- NOTE | 2023-08-01 22:40 | P.DS ---
Providers Date of admission: 07/30/23 22:19 Attending physician: Dariel Lloyd MD Primary care physician: Cary Viera MD Hospital Course: This is a 63-year-old male admitted to the hospital with gross hematuria, patient had urinary retention, and is being worked up as an outpatient for his urinary retention and elevated PSA. He initially presented to the hospital with clot retention, has required multiple cath exchanges, subsequently was admitted for that. Patient continues to undergo manual irrigation of the bladder, his urine did clear off on hospital day #2. He was discharged home on July 31, at time of discharge he was tolerating a diet, ambulating, pain was controlled. His catheter was irrigated without any difficulties. He will follow-up as an outpatient with Dr. Brewer Patient Condition at Discharge: Good Plan - Discharge Summary Discharge Rx Participant: Yes New Discharge Prescriptions: No Action Tamsulosin [Flomax] 0.4 mg PO DAILY Omeprazole [PriLOSEC] 20 mg PO AC-BRKFST Cholecalciferol [Vitamin D3 (25 Mcg = 1000 Iu)] 1,000 unit PO DAILY metFORMIN HCL [Glucophage] 1,000 mg PO BID [place]-3 Fatty Acids/Fish Oil [Fish Oil 1,000 mg Softgel] 1 cap PO DAILY Fenofibrate Nanocrystallized [Fenofibrate] 145 mg PO DAILY Glimepiride [Amaryl] 4 mg PO AC-BID Cephalexin [Keflex] 500 mg PO Q6HR #28 cap Mv-Min/Folic/K1/Lycopen/Lutein [Centrum Silver Men Tablet] 1 tab PO DAILY Losartan/Hydrochlorothiazide [Hyzaar 100-12.5 Tablet] 1 tab PO DAILY Discharge Medication List Cholecalciferol [Vitamin D3 (25 Mcg = 1000 Iu)] 1,000 unit PO DAILY 11/28/19 [History] Fenofibrate Nanocrystallized [Fenofibrate] 145 mg PO DAILY 11/28/19 [History] [place]-3 Fatty Acids/Fish Oil [Fish Oil 1,000 mg Softgel] 1 cap PO DAILY 11/28/19 [History] Omeprazole [PriLOSEC] 20 mg PO AC-BRKFST 11/28/19 [History] Tamsulosin [Flomax] 0.4 mg PO DAILY 11/28/19 [History] metFORMIN HCL [Glucophage] 1,000 mg PO BID 11/28/19 [History] Cephalexin [Keflex] 500 mg PO Q6HR #28 cap 07/30/23 [Rx] Glimepiride [Amaryl] 4 mg PO AC-BID 07/31/23 [History] Losartan/Hydrochlorothiazide [Hyzaar 100-12.5 Tablet] 1 tab PO DAILY 07/31/23 [History] Mv-Min/Folic/K1/Lycopen/Lutein [Centrum Silver Men Tablet] 1 tab PO DAILY 07/31/23 [History] Follow up Appointment(s)/Referral(s): Cary Viera MD [Primary Care Provider] - 1-2 days (Office is closed at time of discharge. Please call for follow-up appointment.) Activity/Diet/Wound Care/Special Instructions: increase fluid intake No heavy lifting or straining Discharge Disposition: HOME SELF-CARE
== END 2023-08-01 12:20 | disposition home or self-care (01) ==
LOC: EC 17:14 → 6NMEDSUR 22:19 → 4SSUR 07-31 00:45
PROVIDERS: ADMIT Urology; ATTEND Urology
DX: R31.0 Gross hematuria (principal); E11.9 Type 2 diabetes mellitus without complications; I10 Essential (primary) hypertension; N40.1 Benign prostatic hyperplasia with lower urinary tract symptoms; R33.8 Other retention of urine; Z79.84 Long term (current) use of oral hypoglycemic drugs; Z79.899 Other long term (current) drug therapy
CPT/HCPCS: 96374; 96375; 99285; 36415; 80053; 85025; 76770; 51700; G0378 ×3; J2270; J1170

== ENCOUNTER → 2023-10-28 | Outpatient (CLI) | payer BC ==
[2023-10-28 13:46] LABS: Appearance,Urine Clear (Clear); Bilirubin,Urine Negative (Negative); Blood,Urine Negative (Negative); Color,Urine Colorless; Glucose,Urine (UA) 2+ (Negative); Ketones,Urine Negative (Negative); Leukocyte Esterase,Urine Negative (Negative); Nitrite,Urine Negative (Negative); PH, Urine 7.5 (5.0-8.0); Protein,Urine Negative (Negative); Specific Gravity,Urine 1.016 (1.001-1.035); Urobilinogen,Urine <2.0 mg/dL (<2.0)
[2023-10-28 13:53] LABS: Partial Thromboplastin Time 24.8 sec (22.0-30.0); Prothrombin Time 11.3 sec (10.0-12.5)
[2023-10-28 18:19] LABS: Basophils # (A) 0.03 X 10*3/uL (0.00-0.10); Basophils % (A) 0.5 %; Eosinophils # (A) 0.19 X 10*3/uL (0.04-0.35); HCT 36.2 % (39.6-50.0); HGB 12.4 g/dL (13.0-17.0); Lymphocytes # (A) 2.41 X 10*3/uL (0.90-5.00); Lymphocytes % (A) 37.4 %; MCH 28.7 pg (27.0-32.0); MCHC 34.3 g/dL (32.0-37.0); MCV 83.8 FL (80.0-97.0); Mean Platelet Volume 11.1 FL (9.5-12.2); Monocytes # (A) 0.53 X 10*3/uL (0.20-1.00); Monocytes % (A) 8.2 %; NRBC Per 100 WBC 0 X 10*3/uL (0.00-0.01); Neutrophils # (A) 3.27 X 10*3/uL (1.80-7.70); Neutrophils % (A) 50.7 %; Platelet Count 256 X 10*3/uL (140-440); RBC 4.32 X 10*6/uL (4.40-5.60); RDW 12.1 % (11.5-14.5); WBC 6.44 X 10*3/uL (4.50-10.00)
[2023-10-28 18:35] LABS: ALT 49 U/L (10-49); AST 31 U/L (14-35); Albumin 4.7 g/dL (3.8-4.9); Albumin/Globulin Ratio 1.74 Ratio (1.60-3.17); Alkaline Phosphatase 66 U/L (41-126); BUN/Creat Ratio 17.06 Ratio (12.00-20.00); Blood Urea Nitrogen 27.3 mg/dL (9.0-27.0); Calcium 11.9 mg/dL (8.7-10.3); Carbon Dioxide 25.4 mmol/L (21.6-31.8); Chloride 102 mmol/L (96-109); Globulin 2.7 g/dL (1.6-3.3); Glucose 127 mg/dL (70-110); Potassium 4.4 mmol/L (3.5-5.5); Sodium 139 mmol/L (135-145); Total Bilirubin 0.5 mg/dL (0.3-1.2); Total Protein 7.4 g/dL (6.2-8.2)
== END | disposition home or self-care (01) ==
LOC: LABWHC1 13:07
PROVIDERS: ATTEND Urology
DX: N40.0 Benign prostatic hyperplasia without lower urinary tract symptoms (principal)
CPT/HCPCS: 36415; 80053; 81003; 83036; 85025; 85610; 85730